=== PATIENT | male | born 1935 | race Caucasian/White ===

== ENCOUNTER → 2018-05-05 | Outpatient (CLI) | payer MEDICARE, OTHER ==
[~2018-05-05] MED LIST: BENAZEPRIL-HCT1 EA12 PO; LIPITOR 20 MG T20 M1 PO; [UNRECOGNIZED DRUG - OTHER] PO
== END ==
LOC: M.MRI 07:13
DX: S83.282A Other tear of lateral meniscus, current injury, left knee, initial encounter (principal); S83.242A Other tear of medial meniscus, current injury, left knee, initial encounter; M71.22 Synovial cyst of popliteal space [Baker], left knee; M22.42 Chondromalacia patellae, left knee; X58.XXXA Exposure to other specified factors, initial encounter; Y93.89 Activity, other specified; Y92.89 Other specified places as the place of occurrence of the external cause; Y99.8 Other external cause status

== ENCOUNTER 2018-06-09 07:11 | Inpatient (IN) | payer MEDICARE, OTHER ==
[2018-05-28 08:55] LABS: HEMATOCRIT 47.5 % (42.0-52.0); HEMOGLOBIN 16.1 gm/dL (14.0-18.0); MCH 31.1 pg (26.0-34.0); MCHC 33.8 g/dL (28.0-37.0); MCV 92.1 fL (80.0-100.0); MPV 8.8 fl. (7.2-11.1); RBC 5.16 mil/uL (4.50-6.00); RDW-CV 14.4 % (10.5-14.5); WBC 4.9 thou/uL (4.0-11.0)
[2018-05-28 09:02] LABS: PROTIME 10.4 Seconds (9.20-11.50)
[2018-05-28 09:10] LABS: ALBUMIN 3.5 g/dL (3.4-5.0); CALCIUM 9.6 mg/dL (8.5-10.1); CREATININE 1.2 mg/dL (0.6-1.3); POTASSIUM 4.1 mmol/L (3.5-5.1); TOTAL PROTEIN 7.3 g/dL (6.4-8.2)
[2018-05-28 11:00] LABS: URINE BILIRUBIN NEGATIVE (Negative); URINE BLOOD NEGATIVE (Negative); URINE CLARITY CLEAR; URINE COLOR YELLOW; URINE GLUCOSE-RANDOM NEGATIVE (Negative); URINE KETONES NEGATIVE (Negative); URINE LEUKOCYTES-REFLEX NEGATIVE (Negative); URINE NITRITE-REFLEX NEGATIVE (Negative); URINE PROTEIN NEGATIVE (Negative); URINE SPECIFIC GRAVITY 1.015 (1.005-1.030); URINE UROBILINOGEN 0.2 E.U./dl (0.2-1.0)
[~2018-06-09] VITALS: Ht 180.3 cm; Wt 105.7 kg
--- NOTE | ~2018-06-09 | OP ---
[facility] [address] [place] [address] OPERATIVE REPORT Name: SOM SANCHEZ Room: [address] IN .R.#: [id number] Admission: 06/09/18 Attend Phys: Abbi Verde Discharge: 06/10/18 Date of : 37 Report #: [id number] THIS REPORT FOR: //name// CC: Physician staff Ant Link DATE OF SERVICE: 06/09/2018 PREOPERATIVE DIAGNOSIS: Left knee osteoarthritis. POSTOPERATIVE DIAGNOSIS: Left knee osteoarthritis. PROCEDURE: Left total knee arthroplasty. SURGEON: Ant Hall II, DO SHOE IRONER: JOANNE Luu ANESTHESIA: General endotracheal. ESTIMATED BLOOD LOSS: 50 mL. ANTIBIOTICS: Ancef preoperatively. DRAINS: Medium Hemovac. COMPLICATIONS: None. CONDITION: The patient is stable to recovery room. IMPLANTS: Listed in the operative record and progress note. BRIEF HISTORY: The patient was seen in the preoperative area. Preoperative H and P was performed. Site was marked, questions were answered. Risks and benefits were discussed with the patient in detail about surgery. The patient wished to proceed assuming all risks. DESCRIPTION OF PROCEDURE: The patient was taken to the operative suite and placed supine on the operative table and given appropriate anesthesia. A well-padded tourniquet was applied to the upper thigh, which was inflated to 300 mmHg after gravity exsanguination. The operative knee was sterilely prepped and draped. Surgery began by a midline incision. This was carried down to the subcutaneous tissues. A medial parapatellar arthrotomy was performed and carried down to bone. The patella was then everted and excess soft tissues were [facility] [address] [place] [address] OPERATIVE REPORT Name: SOM SANCHEZ Room: [address] IN [facility].#: [id number] Admission: 06/09/18 Attend Phys: Abbi Verde Discharge: 06/10/18 Date of : 37 Report #: [id number] removed from around the femur. The femoral cutting block was then applied, checked with a drop ramila for rotational alignment, pinned into appropriate position and appropriate cuts were made. A 4-in-1 cutting block was then applied, checked for rotational alignment, pinned into appropriate position and appropriate cuts were made. The tibia was then exposed. The excess meniscus was removed. Retractors were placed along the collateral ligaments. Tibial cutting block was then applied, pinned into appropriate position, checked with a drop ramila for rotational alignment and slope and appropriate cut was made. Tibial bone was removed. The tibial baseplate was then applied, checked for rotational alignment with a drop ramila and pinned into appropriate position. The pin was then applied and box cut was made. This was then trialed with the appropriate spacer, which showed excellent fit and fill and excellent stability of the knee throughout all range of motion. The patella was then reamed in appropriate fashion and sized to appropriate size. Three peg holes were drilled. It was then trialed and found to have excellent flexion, extension and excellent tracking of the patella within the groove. These trials were then removed. The tibia was punched in appropriate fashion. Bone ends were cleansed with Pulsavac irrigation. Cement was mixed and applied to the final implants. These were then malleted into position and held the knee in extension and compressed to allow cement to cure. After it cured, the excess was removed using a [place] and osteotome. The wound was then copiously irrigated and the final spacer was malleted into position. The tourniquet was deflated. Hemostasis was obtained with electrocautery. Pain cocktail was injected. PRP gel was sprayed throughout the internal aspects of the knee. Medium Hemovac drain was applied. The capsule was closed with 2 FiberWire and 1 Vicryl in [id number] fashion. Skin was closed with 2-0 Vicryl and a running 3-0 Monocryl. Dermabond and sterile dressing was applied. Luis wrap and PolarCare applied. The patient was transferred to the recovery room in stable condition. Counts were correct throughout the procedure. By: [id number] Hall II DO /nt
[2018-06-09] MEDS ORDERED: ALFALFA250 MG PO (07:36)
[2018-06-09] MEDS ORDERED: IRON325 PO (07:37)
[2018-06-09] MEDS ORDERED: OMEGA-31000 M1 PO (07:37)
[2018-06-09] MEDS ORDERED: COLACE100 MG PO (07:38)
[2018-06-09 08:00] VITALS: BP 149/79
[2018-06-09 13:00] VITALS: BP 130/69
[2018-06-09 16:00] VITALS: BP 152/78
[2018-06-09 20:27] VITALS: BP 126/79
[2018-06-09 23:49] VITALS: BP 121/67
[2018-06-10 04:12] VITALS: BP 114/65
[2018-06-10 04:17] LABS: HEMATOCRIT 41.8 % (42.0-52.0); HEMOGLOBIN 14.3 gm/dL (14.0-18.0)
[2018-06-10 08:20] VITALS: BP 125/54
[2018-06-10 09:14] LABS: CALCIUM 9.5 mg/dL (8.5-10.1); CREATININE 1.2 mg/dL (0.6-1.3); MCH 30.5 pg (26.0-34.0); MCHC 33.6 g/dL (28.0-37.0); MCV 90.8 fL (80.0-100.0); PLATELET COUNT* 164 thou/uL (150-400); POTASSIUM 4.6 mmol/L (3.5-5.1); RBC 4.62 mil/uL (4.50-6.00); RDW-CV 14.1 % (10.5-14.5); WBC 11.8 thou/uL (4.0-11.0)
[2018-06-10] MEDS ORDERED: SENNA PLUS TAB1 EACH PO (10:02)
[2018-06-10] MEDS ORDERED: PERCOCET PO (10:14)
[2018-06-10] MEDS ORDERED: XARELTO10 MG PO (10:14)
[2018-06-10 11:05] LABS: ABSOLUTE LYMPHOCYTES 0.8 thou/uL (0.8-5.3); ABSOLUTE MONOCYTES 0.1 thou/uL (0.0-1.2); ABSOLUTE NEUTROPHILS 10.9 thou/uL (1.6-8.1); PLATELET ESTIMATE ADEQUATE
[2018-06-10 12:24] VITALS: BP 125/54
== END 2018-06-10 14:46 | disposition home health service (06) | DRG 470 ==
LOC: M.TBA 07:11 → M.ORTHSURG 07:11 → M.PRE 07:16 → M.ORTHSURG 11:32 → M.PRE 13:23 → M.ORTHSURG 06-10 14:46
PROVIDERS: Family Medicine; Orthopaedic Surgery; ADMIT Internal Medicine
PROC: 0SRD0J9 Replacement of Left Knee Joint with Synthetic Substitute, Cemented, Open Approach (ICD-10-PCS; principal; 2018-06-09)
DX: M17.12 Unilateral primary osteoarthritis, left knee (principal); I10 Essential (primary) hypertension; E66.9 Obesity, unspecified; E78.5 Hyperlipidemia, unspecified; Z88.2 Allergy status to sulfonamides; Z79.899 Other long term (current) drug therapy; Z85.46 Personal history of malignant neoplasm of prostate; Z68.32 Body mass index [BMI] 32.0-32.9, adult

== ENCOUNTER 2018-06-14 22:21 | Inpatient (IN) | payer MEDICARE, OTHER ==
[~2018-06-14] VITALS: Ht 175.3 cm; Wt 108.4 kg
[~2018-06-14 22:21] MED LIST changes: +ALFALFA250 MG PO; +COLACE100 MG PO; +IRON325 PO; +OMEGA-31000 M1 PO; +PERCOCET PO; +SENNA PLUS TAB1 EACH PO; +XARELTO10 MG PO
[2018-06-14 22:24] VITALS: BP 151/70
[2018-06-14 22:55] LABS: ABSOLUTE EOSINOPHILS 0.2 thou/uL (0.0-0.7); ABSOLUTE LYMPHOCYTES 0.6 thou/uL (0.8-5.3); ABSOLUTE MONOCYTES 0.7 thou/uL (0.0-1.2); ABSOLUTE NEUTROPHILS 4.9 thou/uL (1.6-8.1); BASOPHILS 0.5 %; EOSINOPHILS 2.7 %; HEMATOCRIT 36.8 % (42.0-52.0); HEMOGLOBIN 12.4 gm/dL (14.0-18.0); LYMPHOCYTES 9.2 %; MCH 30.7 pg (26.0-34.0); MCHC 33.6 g/dL (28.0-37.0); MCV 91.4 fL (80.0-100.0); MONOCYTES 10.5 %; MPV 8.6 fl. (7.2-11.1); NUCLEATED RBCS 0 /100WBC; PLATELET COUNT* 186 thou/uL (150-400); POLYS 77.1 %; RBC 4.02 mil/uL (4.50-6.00); RDW-CV 14.1 % (10.5-14.5); WBC 6.4 thou/uL (4.0-11.0)
[2018-06-14 23:05] LABS: ANION GAP 7 mmol/L (7-16); APTT 28.4 Seconds (25.0-31.3); BUN 20 mg/dL (7-18); CALCIUM 9.3 mg/dL (8.5-10.1); CHLORIDE 98 mmol/L (98-107); CO2 30 mmol/L (21-32); CREATININE 1.1 mg/dL (0.6-1.3); GLUCOSE 106 mg/dL (70-99); POTASSIUM 4.7 mmol/L (3.5-5.1); PROTIME 10.4 Seconds (9.20-11.50); SODIUM 135 mmol/L (136-145)
[2018-06-14 23:16] LABS: ALBUMIN 2.8 g/dL (3.4-5.0); ALKALINE PHOSPHATASE 58 U/L (46-116); NT-PRO BRAIN NAT PEPTIDE 211 pg/mL (<300); SGOT 39 U/L (15-37); SGPT 23 U/L (30-65); TOTAL BILIRUBIN 1.5 mg/dL (<0.1-1.0); TOTAL PROTEIN 6.8 g/dL (6.4-8.2); TROPONIN-I LEVEL <0.06 ng/mL (<0.06)
[2018-06-15] VITALS (7 sets, daily range): BP systolic 120–149; BP diastolic 58–69
[2018-06-15 01:49] LABS: URINE BILIRUBIN NEGATIVE (Negative); URINE BLOOD NEGATIVE (Negative); URINE CLARITY CLEAR; URINE COLOR YELLOW; URINE GLUCOSE-RANDOM NEGATIVE (Negative); URINE KETONES NEGATIVE (Negative); URINE LEUKOCYTES-REFLEX TRACE (Negative); URINE NITRITE-REFLEX NEGATIVE (Negative); URINE PROTEIN NEGATIVE (Negative); URINE UROBILINOGEN 0.2 E.U./dl (0.2-1.0)
[2018-06-15 02:05] LABS: CASTS None Seen /LPF (None Seen); CRYSTALS None Seen /LPF (None Seen); MUCUS 0-3 Light strn/LPF (None Seen); SQUAMOUS 0-3 Few /LPF (0-3); URINE RBC 0-2 Rare /HPF (0-2); URINE WBC-REFLEX 0-5 Rare /HPF (0-5)
--- NOTE | 2018-06-15 06:56 | NUR ---
FOLLOWED PATIENT RN FROM THE ED. PATIENT ALERT TO SELF UPON ARRIVAL TO THE UNIT. HAS IMPROVED COGNITION THROUGH SHIFT. HAD ONE COMPLAINT OF PAIN IN HIS KNEE, POST SURGICAL. STATED THAT HIS WAS GIVING HIM PAIN MEDICATION EVERY 2 HOURS AT HOME. PATIENT DID NOT KNOW WHAT KIND OF PAIN MEDICATIONS HE WAS BEING GIVEN AT HOME. USES Palm. DRESSING TO SURGICAL SITE IS C/D/I. MANAGER PERIOPERATIVE AND HOURLY ROUNDING COMPLETED DOCUMENTED.
--- NOTE | 2018-06-15 08:53 | NUR ---
ASSUMED CARE OF PT THIS AM AROUND 07- SQL PROGRAMMER IN PLACE ORDERED, TRACING SR WITH PAC'S- UPON ASSESSMENT PT NOTED TO BE RESTING IN BED, WATCHING TV- PT A&O X3 WITH FORGETFULLNESS NOTED- CONTINENT OF BOWEL AND BLADDER, USING URINAL AT BED SIDE- BED REST IN PLACE WITH Q 2HOUR TURNS- LCTA, RESP EVEN AND UN-LABORED- VSS, O2 SAT 96% ON RA- ABDOMEN SOFT/ROUND/NON-TENDER, BS X4 QUADS- LAST BM REPORTED X7 DAYS AGO- PT REPORTS TO BE PASSING GAS OKAY- LEFT KNEE INCISSION WITH DRESSING INTACT INDICATED, THTH IN PLACE ORDERED- IV NOTED TO RUE INTACT AND SL- PT DENIES ANY C/O PAIN/DISCOMFORT AT THIS TIME- CALL LIGHT AND PERSONAL BELONGINGS WITH IN REACH- HOURLY ROUNDS IN PLACE R/T SAFETY/NEEDS- ALL NEEDS MET AT THIS TIME-WCTM
--- NOTE | 2018-06-15 10:29 | EKG ---
[place] [address] ELECTROCARDIOGRAM REPORT Name: SOM SANCHEZ Room: [address] ADM IN M.R.#: [id number] Admission: 06/15/18 Attend Phys: Gregorio Chen MD Discharge: Date of : 36 Report #: [id number] THIS REPORT FOR: //name// [facility] ED Test Date: 2018-06-14 Test Time: 22:41:08 Pat Name: SOM SANCHEZ Department: Room: [facility] Gender: M Twist Tester: AP : 1935 Requested By: Dustin Sethi Order Number: [id number] MD: Baltazar Mckeon Measurements Intervals [place] Rate: 73 P: 19 MA: 199 QRS: -48 QRSD: 104 T: 109 QT: 369 QTc: 407 Interpretive Statements Sinus rhythm Left anterior fascicular block Consider anterior infarct Abnormal T, consider ischemia, lateral leads No previous ECG available for comparison Electronically Signed On 06-15-2018 10:29:02 INCINERATOR [employer] GENERAL SUPERVISOR by Baltazar Mckeon [email or web address] <ELECTRONICALLY SIGNED> By: Baltazar Mckeon MD, [facility] 06/15/18 1029 [id number] 40 Baltazar Mckeon MD, [facility] /EPI
--- NOTE | 2018-06-15 10:32 | EKG ---
[place] [address] ELECTROCARDIOGRAM REPORT Name: SOM SANCHEZ Room: [address] ADM IN M.R.#: [id number] Admission: 06/15/18 Attend Phys: Gregorio Chen MD Discharge: Date of : 37 Report #: [id number] THIS REPORT FOR: //name// [facility] ED Test Date: 2018-06-15 Test Time: 00:53:35 Pat Name: SOM SANCHEZ Department: Room: [facility] Gender: M Minibus Driver: : 1935 Requested By: Dustin Sethi Order Number: [id number] MD: Baltazar Mckeon Measurements Intervals [place] Rate: 70 P: 17 UT: 188 QRS: -49 QRSD: 107 T: 116 QT: 373 QTc: 403 Interpretive Statements Sinus rhythm Atrial premature complexes Left anterior fascicular block Consider anterior infarct Abnormal T, consider ischemia, lateral leads Electronically Signed On 06-15-2018 10:32:16 BARREL WATERER by Baltazar Mckeon [email or web address] <ELECTRONICALLY SIGNED> By: Baltazar Mckeon MD, [facility] 06/15/18 1032 0053 005 Baltazar Mckeon MD, [facility] /EPI
[2018-06-15 12:38] LABS: ALBUMIN 2.7 g/dL (3.4-5.0); CALCIUM 9.3 mg/dL (8.5-10.1); CREATININE 1.1 mg/dL (0.6-1.3); POTASSIUM 4.3 mmol/L (3.5-5.1); TOTAL BILIRUBIN 1.4 mg/dL (<0.1-1.0); TOTAL PROTEIN 6.6 g/dL (6.4-8.2)
--- NOTE | 2018-06-15 14:30 | NUR ---
Pt is normally A&O. Admitted for AMS. Pt recently had a knee replacement and dc home with [facility]. Pt was using a walker for mobility. No hx of skilled. Neuro following. Goal is to return home if able with HH. Therapies ordered. Following.
--- NOTE | 2018-06-15 16:46 | NUR ---
PT CURRENTLY UP RESTING IN BED SIDE RECLINER- PARTICIPATING IN THERAPIES PRESCIBED- GROUP FITNESS MANAGER IN PLACE ORDERED, TRACING SR- ICE TO LEFT KNEE THIS SHIFT PER PT REQUEST FOR COMFORT- PRN PERCOCET PER REQUEST X2 THIS SHIFT, PT REPORTS MEDICATION TO BE EFFECTIVE- RUE IV NOTED INTACT AND SL- HOME POLAR PACK BROGHT PER FAMILY AND IN PLACE REQUESTED- IV ROCEPHIN DAILY STARTED PER PHYSICIAN THIS SHIFT- NEW ORDER NOTED FOR COLACE AND MIRALX THIS SHIFT AND GIVEN PRESCIBED; AWAITTING RESULTS- NEURO CONSULT NOTED- CALL LIGHT AND PERSONAL BELONGINGS WITH IN REACH- HOURLY ROUNDS IN PLACE R/T SAFETY/NEEDS- ALL NEEDS MET AT THIS TIME-WCTM
--- NOTE | 2018-06-15 17:11 | NUR ---
RECEIVED CONSULT FOR POSSIBLE REHAB ADMISSION. CONSULT HAS BEEN ACKNOWLEDED BY HEALTH SUPPORT SPECIALIST AND DR. BROWNE. PATIENT ADMITTED WITH AMS FOUND TO HAVE UTI, PATIENT HAD RECENT LEFT TKR. NEUROLOGY CONSULTED AND WORKUP IN PROGRESS, [facility] IS FOLLOWING. PATIENT EVALUATED BY PT AND FOUND TO BE AT A MIN A LEVEL. OT/ST EVALUATIONS ARE PENDING. WILL FOLLOW ALONG WITH PATIENT TO SEE HOW HE PROGRESSES AND PENDING WORKUPS TO DETERMINE IF PATIENT QUALIFIES FOR ACUTE REHAB. THANK YOU FOR THIS CONSULT.
[2018-06-16] VITALS: BP 136/65
[2018-06-16 04:00] VITALS: BP 139/75
[2018-06-16 05:13] LABS: CHOLESTEROL 109 mg/dL (<200); HDL CHOLESTEROL 37 mg/dL (>40); LDL CHOLESTEROL 57 mg/dL (<100); TC:HDL 2.9 Ratio (Not establshd); TRIGLYCERIDE 75 mg/dL (<150); VLDL 15 mg/dL (<40)
[2018-06-16 05:18] LABS: SERUM ASSESSMENT Clear
--- NOTE | 2018-06-16 06:58 | NUR ---
PATIENT HAS SLEPT WELL THROUGHOUT THE NIGHT WITHOUT ANY ISSUES. VSS ON RA. PAIN WELL CONTROLLED. MEDICATIONS GIVEN ORDERED AND CHARTED. DRESSING TO LEFT KNEE IS C/D/I AND POLAR CARE IN PLACE. IV IN RIGHT UPPER ARM-SL. PATIENT INSTRUCTED TO USE CALL LIGHT WHEN NEEDING ASSISTANCE. HOURLY ROUNDS MADE. WILL CONTINUE WITH PLAN OF CARE AND NURSING TO MONITOR.
[2018-06-16 08:00] VITALS: BP 141/74
[2018-06-16 09:10] LABS: GLYCOHEMOGLOBIN (HGB A1C) 5.8 % (4.8-5.6)
--- NOTE | 2018-06-16 10:52 | CON ---
[address] [address] CONSULTATION Name: SOM SANCHEZ Room: [address] IN M.R.#: [id number] Admission: 06/15/18 Attend Phys: Gregorio Chen MD Discharge: Date of : 37 Report #: [id number] THIS REPORT FOR: //name// CC: Gregorio Chen MD [facility] physician/PCP DATE OF SERVICE: 06/15/2018 HISTORY OF PRESENT ILLNESS: The patient is an 83-year-old male who presented to the Emergency Room with generalized weakness. The patient had difficulty getting around the home. Prior to admission, the patient had a left total knee replacement approximately 5 days prior to admission. This morning, the patient states that he feels perfectly fine. He tells me that he has an appointment with his orthopedic surgeon tomorrow and he is hoping to keep this appointment. He has no complaints at this time. PAST MEDICAL HISTORY: Hypertension, hyperlipidemia, prostate cancer treated with radiation. PAST SURGICAL HISTORY: Inguinal hernia repair, tonsillectomy, left knee replacement. MEDICATIONS: At home, atorvastatin 20 mg at bedtime, benazepril hydrochlorothiazide 5-6.25 mg daily, omega 3 fatty acids, ferrous sulfate 325 mg daily, Xarelto 10 mg daily, Percocet 5 mg p.r.n., senna 1 tablet b.i.d. ALLERGIES: SULFA. PHYSICAL EXAMINATION: VITAL SIGNS: Blood pressure 149/69, temperature is 36.5, pulse rate 68, respiratory rate 20. LABORATORY DATA: Hematology: White blood cell count 6.5, hemoglobin 12.4, hematocrit 36.8, platelet count 186,000. INR 1. Urinalysis shows trace leukocyte esterase and moderate bacteria. Chemistry panel: Sodium 135, potassium 4.7, chloride 98, carbon dioxide 30, BUN 20, creatinine 1.1, GFR 64, glucose 106, bilirubin 1.5, AST 39, ALT 23, alkaline phosphatase 58, albumin 2.8. IMAGING STUDIES: CT scan of the head demonstrates chronic age-related changes. CT of the chest was negative for pulmonary embolus. NEUROLOGIC: Cranial nerves 2-12 are grossly intact. Motor exam demonstrates symmetrical strength in all 4 extremities with the exception of the left lower extremity, which could not be examined well because [place] [address] CONSULTATION Name: SOM SANCHEZ Room: [address] IN [facility]#: [id number] Admission: 06/15/18 Attend Phys: Gregorio Chen MD Discharge: Date of : 37 Report #: [id number] Reflexes are symmetrical in the upper extremities. Reflexes are trace in the right lower extremity. Plantar responses are flexor. Coordination demonstrates no evidence of dysmetria. Gait was not tested. IMPRESSION: This patient has had an episode of generalized weakness. This may be secondary to a mild urinary tract infection. The patient received 1 gram of Rocephin last night and is currently not on further antibiotic therapy. Perhaps an oral medication can be tried since the patient has an ALLERGY TO SULFA. This episode does not appear to be consistent with stroke. I would recommend physical therapy for the patient. I do not think any changes need to be made to his medication at this point, he is currently on Xarelto 10 mg daily and this should provide him adequate coverage for any type of thromboembolic event. I thank you for your kind referral of this patient. <ELECTRONICALLY SIGNED> By: Elena Carolina DO 06/16/18 1052 0940 Yobani Carolina DO /nt
[2018-06-16 12:00] VITALS: BP 119/57
--- NOTE | 2018-06-16 14:07 | NUR ---
ASSUMED PT CARE AT 0700 PT IS ALERT AND ORIENTED X 4 PT C/O PAIN GAVE PAIN MEDS PT IS UP WITH ASSIST X 1 PT IS A FALL RISK BED ALARM IS ON, PT IS SR ON THE MONITOR, PT IS CLEARED TO DISCHARGE PT GIVEN ANTIBIOTICS, WILL CONTINUE TO MONITOR
[2018-06-16] MEDS ORDERED: LISINOPRIL5 MG PO (14:41)
[2018-06-16] MEDS ORDERED: MIRALAX17 GM PO (14:43)
[2018-06-16 14:44] VITALS: BP 119/57
--- NOTE | 2018-06-16 15:43 | NUR ---
Pt dc to home today, faxed resumption HH orders to [facility].
== END 2018-06-16 15:30 | disposition home health service (06) | DRG 91 ==
LOC: M.ERS 22:21 → M.2W 06-15 01:08 → M.TBA-ER 06-15 01:08 → M.2W 06-15 02:47
PROVIDERS: Emergency Medicine Emergency Medical Services; Internal Medicine; ADMIT Internal Medicine
DX: G92 Toxic encephalopathy (principal); E43 Unspecified severe protein-calorie malnutrition; N39.0 Urinary tract infection, site not specified; J98.11 Atelectasis; E87.1 Hypo-osmolality and hyponatremia; I10 Essential (primary) hypertension; E78.5 Hyperlipidemia, unspecified; Z96.652 Presence of left artificial knee joint; K59.00 Constipation, unspecified; R73.9 Hyperglycemia, unspecified; D64.9 Anemia, unspecified; T39.95XA Adverse effect of unspecified nonopioid analgesic, antipyretic and antirheumatic, initial encounter; Z68.35 Body mass index [BMI] 35.0-35.9, adult; Y92.89 Other specified places as the place of occurrence of the external cause; Z85.46 Personal history of malignant neoplasm of prostate; Z92.3 Personal history of irradiation; Z79.01 Long term (current) use of anticoagulants; Z79.899 Other long term (current) drug therapy; Z88.2 Allergy status to sulfonamides; Z82.49 Family history of ischemic heart disease and other diseases of the circulatory system; Z80.6 Family history of leukemia